=== PATIENT | male | born 1975 | race Caucasian/White ===

== ENCOUNTER 2016-07-28 20:17 | Emergency (ER) | payer BC, OTHER ==
[2016-07-28 20:38] VITALS: BP 129/90; PULSE 70; BMI 26.6
--- NOTE | 2016-07-28 20:54 | PDOC ---
History of Present Illness - General Chief Complaint: Sore Throat Stated Complaint: SORE THROAT/DIARRHEA History Source: Patient Exam Limitations: No Limitations - History of Present Illness Initial Comments: CHIEF COMPLAINT: 40 y/o afebrile male c/o sore throat x 2 days. HISTORY OF PRESENT ILLNESS: He states he sometimes has pain with swallowing and has also had diarrhea. The patient has 2 children at home with strep throat. His tested negative for strep throat yesterday. He denies fever, chills, cough, n/v, CP, SOB, abd pain. Vital signs on arrival are within normal limits. REVIEW OF SYSTEMS: GENERAL/CONSTITUTIONAL: No fever/chills. No weakness. No weight change. HEAD, EYES, EARS, NOSE AND THROAT: No change in vision. No ear pain or discharge. +sore throat CARDIOVASCULAR: No chest pain or shortness of breath. RESPIRATORY: No cough, wheezing, or hemoptysis. GASTROINTESTINAL: +diarrhea. No nausea, vomiting. GENITOURINARY: No dysuria, frequency, or change in urination. MUSCULOSKELETAL: No joint or muscle swelling or pain. No neck or back pain. SKIN: No rash or easy bruising. NEUROLOGIC: No headache, vertigo, loss of consciousness, or loss of sensation. PHYSICAL EXAM: GENERAL: The patient is awake, alert, and fully oriented, in no acute distress. He is well appearing and ambulatory. HEAD: Normal with no signs of trauma. NECK: No tender anterior cervical lymphadenopathy. ENT: Pupils equal, round and reactive to light, extraocular movements intact, sclera anicteric, conjunctiva clear. Erythematous posterior pharynx with 1+ left tonsil without exudate. Uvula midline. No soft/hard palate deformities. No petechia. LUNGS: Clear to auscultation bilaterally. Normal excursion. No respiratory distress or use of accessory muscles. CV: RRR, S1/S2, no MRG. Cap refill < 2 sec. ABDOMEN: Soft, non-distended, non-tender even to deep palpation, no hepatomegaly or splenomegaly, no masses. EXTREMITIES: Normal range of motion, no edema. NEUROLOGICAL: Normal speech, normal gait. CN II-XII grossly intact. PSYCH: Normal mood, normal affect. SKIN: Warm, dry, normal turgor, no rashes or lesions noted. Past History - Past Medical History Allergies/Adverse Reactions: Allergies Allergy/AdvReac Type Severity Reaction Status Date / Time No Known Allergies Allergy Verified 07/28/16 20:34 Home Medications: Ambulatory Orders NK [No Known Home Medication] 07/28/16 Anemia: No Asthma: No Cancer: No Cardiac Disorders: No Other medical history: Pt denies - Surgical History Abdominal Surgery: No Appendectomy: Yes Cardiac Surgery: No - Immunization History Immunization Up to Date: Yes - Psycho/Social/Smoking Cessation Hx Anxiety: No Suicidal Ideation: No Smoking Status: No Smoking History: Never smoked Number of Cigarettes Smoked Daily: 0 Information on smoking cessation initiated: No Hx Alcohol Use: No Drug/Substance Use Hx: No Substance Use Type: None *Physical Exam - Vital Signs Last Vital Signs Temp Pulse Resp BP Pulse Ox 97.6 F 70 18 129/90 99 07/28/16 20:35 07/28/16 20:35 07/28/16 20:35 07/28/16 20:35 07/28/16 20:35 Medical Decision Making - Medical Decision Making A/P: 40 y/o male with sore throat x 2 days. Has 2 kids with strep. Plan is as follows: 1. Rapid strep Rapid strep - negative Gave the patient his results. Will discharge to home with supportive care instructions. Suggested Motrin for pain, gargle with warm salt water and soft/ cold foods for pain as well. Pt instructed to return to the ER with any worsening or concerning symptoms. The patient verbalizes understanding of all instructions, has no further questions and is awaiting discharge. *DC/Admit/Observation/Transfer Diagnosis at time of Disposition: Pharyngitis Qualifiers: Pharyngitis/tonsillitis etiology: unspecified etiology Qualified Code(s): J02.9 - Acute pharyngitis, unspecified - Discharge Dispostion Disposition: HOME Condition at time of disposition: Good - Referrals Referrals: Jules Akers MD [Primary Care Provider] - - Patient Instructions Printed Discharge Instructions: Sore Throat Additional Instructions: Discharge Instructions: -You test for strep throat was negative -Take Motrin for pain if needed -Gargle with warm salt water -Eat soft/cold foods to help with sore throat -Drink plenty of liquids -Return to the ER with any worsening or concerning symptoms
[2016-07-28 21:00] VITALS: TEMP 99.1
== END 2016-07-28 21:37 | disposition home or self-care (01) ==
LOC: JERFT 20:17
DX: J02.9 Acute pharyngitis, unspecified (principal)
CPT/HCPCS: 87070; 87430; 99281-25